=== PATIENT | female | born 1975 | race Caucasian/White ===

== ENCOUNTER 2022-06-22 19:19 | Outpatient (CLI) | payer OTHER, SELFPAY ==
--- NOTE | 2022-06-22 19:30 | CRLHL7_ITS ---
For Patients: As a result of the Century Cures Act, medical imaging exams and procedure reports are released immediately into your electronic medical record. You may view this report before your referring provider. If you have questions, please contact your health care provider. BILATERAL SCREENING MAMMOGRAM WITH COMPUTER-AIDED DETECTION AND TOMOSYNTHESIS TECHNIQUE: CC and MLO views were obtained. These mammographic images have been obtained using full-field digital technique. These mammographic images were interpreted with the benefit of computer-aided detection. Breast Tomosynthesis was used in this interpretation. COMPARISON FILM: 02/10/21,06/04/19,04/06/18. FINDINGS: The breasts are heterogeneously dense, which may obscure small masses IMPRESSION: There is no radiographic evidence for malignancy. ASSESSMENT: BI-RADS Category 2: Benign RECOMMENDATION: Routine screening mammogram in 1 year. A lay language report of this examination will be provided to the patient. Miky Sandra M.D. Diagnostic/Nuclear Medicine Radiologist [email or web address] Transcribed: 2:09 pm DW/Dictated by: Miky Sandra MD @ 06/23/2022 8:27:00 AM (Electronically Signed)
== END 2022-06-22 19:20 | disposition home or self-care (01) ==
LOC: MAMMO 19:19
PROVIDERS: PCP Family Medicine; Visit Provider Physician Assistant
DX: Z12.31 Encounter for screening mammogram for malignant neoplasm of breast (principal); R92.2 Inconclusive mammogram
CPT/HCPCS: 77063; 77067

== ENCOUNTER 2023-07-25 09:23 | Outpatient (CLI) | payer OTHER, SELFPAY ==
--- NOTE | 2023-07-25 09:15 | MM_ITS ---
Patient: DEEP Shelton Facility:?[facility] Patient ID:?[id number] Site [id number] ID:?[id number]. Site :?[id number] Study:?XRay-Breast Bilateral 3D W/CAD-07/25/2023 11:05:38 AM Ordering Physician:Hal Final Report: BILATERAL SCREENING MAMMOGRAM WITH COMPUTER-AIDED DETECTION AND TOMOSYNTHESIS TECHNIQUE: CC and MLO views were obtained. These mammographic images have been obtained using full-field digital technique. These mammographic images were interpreted with the benefit of computer-aided detection. Breast Tomosynthesis was used in this interpretation. COMPARISON FILM: 06/22/22, 02/10/21, 06/04/19. FINDINGS: The breasts are heterogeneously dense, which may obscure small masses IMPRESSION: There is no radiographic evidence for malignancy. ASSESSMENT: BI-RADS Category 2: Benign RECOMMENDATION: Routine screening mammogram in 1 year. A lay language report of this examination will be provided to the patient. Tmomie Fried M.D. Diagnostic Radiologist [email or web address] SIRI/ale R/ Transcribed: 3:11 p.m. NYAELI/Dictated by: Tommie Fried MD @ 07/25/2023 1:10:00 PM Signed by:?Tommie Fried MD @07/25/2023 3:41:58 PM (Electronic Signature)
== END 2023-07-25 09:24 | disposition home or self-care (01) ==
PROVIDERS: PCP Family Medicine; Visit Provider Family Medicine
DX: Z12.31 Encounter for screening mammogram for malignant neoplasm of breast (principal); R92.2 Inconclusive mammogram
CPT/HCPCS: 77063; 77067

== ENCOUNTER 2023-08-03 19:30 | Outpatient (CLI) | payer OTHER, SELFPAY ==
--- NOTE | 2023-08-09 09:08 | W.PM.SLEEP ---
Sleep Study Details Details Interpreting Provider: Melani Date of Sleep Study: 08/03/23 Sleep Study Details: STUDY TYPE:? Home unattended ? BMI:? 26.6 ORDERING PROVIDER:? Haydee INDICATION:? Concerns about sleep apnea and daytime hypersomnolence ? SLEEP SUMMARY:? 491 minutes monitored RESPIRATORY SUMMARY:? AHI 19.1 Low oxygen 84 0.4% of study oxygen less than 90% Snoring 39.8% PERIODIC LIMB MOVEMENTS OF SLEEP:? Not recorded during home study CARDIAC:? Range 53-100, mean 62.1 IMPRESSION:? Moderate obstructive sleep apnea RECOMMENDATION: Treatment options include CPAP AutoSet 4-17, dental appliance and/or airway expansion surgery.
== END 2023-08-03 19:31 | disposition home or self-care (01) ==
LOC: SLEEP 19:32
PROVIDERS: PCP Family Medicine; Visit Provider Family Medicine
DX: G47.33 Obstructive sleep apnea (adult) (pediatric) (principal)
CPT/HCPCS: 95806

== ENCOUNTER 2023-10-10 09:01 | Outpatient (CLI) | payer OTHER, SELFPAY ==
--- NOTE | 2023-10-10 10:26 | W.ANESCHARGE ---
Anesthesia Charges Start Date/Time Anesthesia Start Date: 10/10/23 Anesthesia Start Time: 10:00 Stop Date/Time Anesthesia Stop Date: 10/10/23 Anesthesia Stop Time: 10:27
--- NOTE | 2023-10-10 11:50 | W.ANESCHARGE ---
Anesthesia Charges Start Date/Time Anesthesia Start Date: 10/10/23 Anesthesia Start Time: 10:00 Stop Date/Time Anesthesia Stop Date: 10/10/23 Anesthesia Stop Time: 10:27
== END 2023-10-10 09:02 | disposition home or self-care (01) ==
LOC: OP CLINIC 09:01
PROVIDERS: PCP Family Medicine; Visit Provider Surgery
DX: Z12.11 Encounter for screening for malignant neoplasm of colon (principal); K63.5 Polyp of colon; Z83.719 Family history of colon polyps, unspecified
CPT/HCPCS: 00811; 45385; 88305; J2704

== ENCOUNTER 2023-10-17 09:15 | Outpatient (RCR) | payer OTHER, SELFPAY | END 2023-11-29 09:45 | disposition home or self-care (01) | PROVIDERS: PCP Family Medicine; Visit Provider Family Medicine | DX: M25.512 Pain in left shoulder (principal); M54.50 Low back pain, unspecified; Z51.89 Encounter for other specified aftercare | CPT/HCPCS: 80061; 82947; 97110; 97140; 97161 ==

== ENCOUNTER 2024-08-06 10:11 | Outpatient (CLI) | payer OTHER, SELFPAY | END 2024-08-06 10:12 | disposition home or self-care (01) | LOC: MAMMO 10:12 | PROVIDERS: PCP Family Medicine; Visit Provider Family Medicine | DX: Z12.31 Encounter for screening mammogram for malignant neoplasm of breast (principal); R92.333 Mammographic heterogeneous density, bilateral breasts | CPT/HCPCS: 77063; 77067 ==

== ENCOUNTER 2024-10-26 10:28 | Outpatient (CLI) | payer OTHER, SELFPAY | END 2024-10-26 10:29 | disposition home or self-care (01) | LOC: NFLDREF 10:32 | PROVIDERS: PCP Family Medicine; Visit Provider Physician Assistant | DX: Z00.00 Encounter for general adult medical examination without abnormal findings (principal); F41.1 Generalized anxiety disorder; Z13.6 Encounter for screening for cardiovascular disorders; Z13.1 Encounter for screening for diabetes mellitus | CPT/HCPCS: 80061; 82947; 84443 ==